=== PATIENT | female | born 1970 | race Asian ===

== ENCOUNTER 2018-07-03 12:25 | Inpatient (IN) | payer OTHER ==
[~2018-07-03] VITALS: Ht 152.4 cm; Wt 56.7 kg
--- NOTE | 2018-07-03 13:18 | Emergency Room Report ---
History of Present Illness General Chief Complaint: Lower Extremity Injury Source: Patient Present Illness HPI 48 YO Female presents to the ED C/O 05/09 in severity right hip pain s/p slip and fall getting out of the shower 3 days ago. pt. reports that she has been unable to weight bear. She has been couch ridden for 3 days unable to move secondary to pain. pt. also reports she has consciously decreased oral intake to limit need to urinate/defecate due to immobility issues. Pt. reports bruising to the left side of head, and bilateral knees. Pt. denies taking blood thinning medications. Denies pmhx. does not take medications regularly. has not taken anything for her pain. Denies numbness tingling or loss of sensation or gross motor movements of the extremity, incontinence of bowel or bladder. Denies CP, Palpitations, LOC, AMS, dizziness, Changes in Vision, weakness or a sudden severe headache. Allergies: Coded Allergies: No Known Allergies (Unverified , 07/03/18) Patient History Past Medical History: see triage record Past Surgical History: none Pertinent Family History: none Now: No Reviewed Nursing Documentation: PMH: Agreed; PSxH: Agreed Nursing Documentation-PMH Past Medical History: No Stated History Review of Systems All Other Systems: negative except mentioned in HPI Physical Exam Vital Signs Date Time Temp Pulse Resp B/P (MAP) Pulse Ox O2 Delivery O2 Flow Rate FiO2 07/03/18 12:19 98.2 93 18 135/84 98 Room Air 98.2 Sp02 EP Interpretation: reviewed, normal General Appearance: no apparent distress, alert, GCS 15, non-toxic Head: normocephalic, other - bruise to the left side of the head/forehead- non tender Eyes: bilateral eye normal inspection, bilateral eye PERRL, bilateral eye EOMI ENT: hearing grossly normal, normal voice Neck: full range of motion, no bony tend Respiratory: chest non-tender, lungs clear, normal breath sounds, speaking full sentences Cardiovascular #1: regular rate, rhythm, no edema, normal capillary refill Cardiovascular #2: 2+ dorsalis pedis (R), 2+ dorsalis pedis (L) Gastrointestinal: non tender, soft Musculoskeletal: back normal, normal range of motion, other - not ambulatory, tender - TTP to the anterior and lateral right hip. Neurologic: alert, oriented x3, responsive, motor strength/tone normal, sensory intact, speech normal, grossly normal Psychiatric: judgement/insight normal Skin: normal color, no rash, warm/dry, well hydrated, other - bruising to bilateral knees and left side of the forehead. Medical Decision Making PA Attestation Dr. nina is my supervising Physician whom patient management has been discussed with. Diagnostic Impression: Primary Impression: Hip fracture, right Qualified Codes: S72.001A - Fracture of unspecified part of neck of right femur, initial encounter for closed fracture ER Course 48 YO Female presents to the ED C/O 05/09 in severity right hip pain s/p slip and fall getting out of the shower 3 days ago. pt. reports that she has been unable to weight bear. She has been couch ridden for 3 days unable to move secondary to pain. pt. also reports she has consciously decreased oral intake to limit need to urinate/defecate due to immobility issues. Pt. reports bruising to the bilateral knees. Pt. denies taking blood thinning medications. Denies pmhx. does not take medications regularly. has not taken anything for her pain. Denies numbness tingling or loss of sensation or gross motor movements of the extremity, incontinence of bowel or bladder. Denies CP, Palpitations, LOC, AMS, dizziness, Changes in Vision, weakness or a sudden severe headache. Ddx considered but are not limited to Fracture, dislocation, contusion, Sprain/ Strain/Spasm. Vital signs: are WNL, pt. is afebrile H&PE are most consistent with musculoskeletal injury will perform imaging to r/ o fractures/dislocations. -- noted to have bruising to the left side of head- no ttp, pt. was not aware of this. she only knew about bruising to anterior knees. no obvious leg length discrepancy ORDERS: - CT Right hip - positive for acute comminuted intracapsular fracture of the right femoral neck- Per official radiology report- Please see report for specific details. CBC: mild anemia otherwise unremarkable CMP: elevated BUN, otherwise unremarkable -ABO: A-POSITIVE -UA: NO evidence of Urinary infection, no inflammatory marker elevation or nitrites ED INTERVENTIONS: - 1 liter NS - Pt. declines pain medication at this time. -Pt. placed NPO DISPOSITION: at this time pt. will be admitted to Dr. Mason for Right Femoral neck fx. Dr. Cuevas agreed to admit the pt. and to continue pt. care management. Labs Test 07/03/18 14:35 07/03/18 19:47 White Blood Count 6.7 K/UL (4.8-10.8) Red Blood Count 3.95 M/UL (4.20-5.40) Hemoglobin 14.0 G/DL (12.0-16.0) Hematocrit 41.3 % (37.0-47.0) Mean Corpuscular Volume 105 FL (80-99) Mean Corpuscular Hemoglobin 35.5 PG (27.0-31.0) Mean Corpuscular Hemoglobin Concent 33.9 G/DL (32.0-36.0) Red Cell Distribution Width 10.0 % (11.6-14.8) Platelet Count 156 K/UL (150-450) Mean Platelet Volume 9.9 FL (6.5-10.1) Neutrophils (%) (Auto) 78.4 % (45.0-75.0) Lymphocytes (%) (Auto) 12.1 % (20.0-45.0) Monocytes (%) (Auto) 8.4 % (1.0-10.0) Eosinophils (%) (Auto) 0.7 % (0.0-3.0) Basophils (%) (Auto) 0.5 % (0.0-2.0) Sodium Level 136 MMOL/L (136-145) Potassium Level 4.2 MMOL/L (3.5-5.1) Chloride Level 101 MMOL/L (98-107) Carbon Dioxide Level 23 MMOL/L (21-32) Anion Gap 12 mmol/L (5-15) Blood Urea Nitrogen 22 mg/dL (7-18) Creatinine 0.6 MG/DL (0.55-1.30) Estimat Glomerular Filtration Rate > 60 mL/min (>60) Glucose Level 89 MG/DL (74-106) Calcium Level 8.6 MG/DL (8.5-10.1) Total Bilirubin 0.9 MG/DL (0.2-1.0) Aspartate Amino Transf (AST/SGOT) 19 U/L (15-37) Alanine Aminotransferase (ALT/SGPT) 22 U/L (12-78) Alkaline Phosphatase 87 U/L (46-116) Total Protein 6.6 G/DL (6.4-8.2) Albumin 2.8 G/DL (3.4-5.0) Globulin 3.8 g/dL Albumin/Globulin Ratio 0.7 (1.0-2.7) Urine Color Yellow Urine Appearance Clear Urine pH 6 (4.5-8.0) Urine Specific [place] 1.020 (1.005-1.035) Urine Protein 1+ (NEGATIVE) Urine Glucose (UA) Negative (NEGATIVE) Urine Ketones 4+ (NEGATIVE) Urine Blood Negative (NEGATIVE) Urine Nitrite Negative (NEGATIVE) Urine Bilirubin Negative (NEGATIVE) Urine Urobilinogen 1 MG/DL (0.0-1.0) Urine Leukocyte Esterase 1+ (NEGATIVE) Urine RBC 0-2 /HPF (0 - 2) Urine WBC 0-2 /HPF (0 - 2) Urine Squamous Epithelial Cells Few /LPF (NONE/OCC) Urine Bacteria Few /HPF (NONE) EKG Diagnostic Results EP Interpretation: Dr. Anton Rate: normal - 68 BPM Rhythm: NSR ST Segments: no acute changes ASA given to the pt in ED: No PA Scribe Text This Interpretation was scribed by ATUL Poon. Chest X-Ray Diagnostic Results Chest X-Ray Diagnostic Results : Chest X-Ray Ordered: Yes # of Views/Limited/Complete: 1 View Indication: Chest Pain EP Interpretation: Yes PA Xray: Interpretation reviewed, by supervising MD, and agrees with findings. Interpretation: no consolidation, no effusion, no pneumothorax, no acute cardiopulmonary disease Impression: No acute disease Electronically Signed by: Ledy Poon PA-C CT/MRI/US Diagnostic Results CT/MRI/US Diagnostic Results : Imaging Test Ordered: CT No Contrast R HIP Impression Positive for acute intracapsular fracture of the right femoral neck-Per official radiology report- Please see report for specific details. Last Vital Signs Date Time Temp Pulse Resp B/P (MAP) Pulse Ox O2 Delivery O2 Flow Rate FiO2 07/03/18 12:19 98.2 93 18 135/84 98 Room Air 98.2 Disposition: ADMITTED INPATIENT Condition: Ledy Hughes Jul 03, 2018 13:18
[2018-07-03 14:00] VITALS: BP 130/81
--- NOTE | 2018-07-03 14:18 | Diagnostic Imaging Report ---
Indication: Hip pain Technique: continuous helical imaging in the transaxial plane was performed from the iliac crests to the pubic symphysis with attention to the right hip. Coronal 2-D reformatted images were also generated. Study obtained in a Siemens Sensation [address] total DLP: 305.29 mGycm CTD/vol: 10.1 mGy Comparison: None Findings: There is no evidence of an acute fracture or significant malalignment identified on this examination. There is acute subcapital fracture of the right femoral neck with the comminution and the displacement. Slight impaction of the fracture noted as well. Soft tissue swelling is present. No other fractures are identified. Vacuum phenomena and mild endplate osteophyte formation at L5-S1 demonstrated. IMPRESSION: Acute comminuted intracapsular fracture of the right femoral neck. The CT scanner at [facility] is accredited by the [employer] and the scans are performed using dose optimization techniques as appropriate to a performed exam including Automatic Exposure control.
[2018-07-03 14:56] LABS: BASOPHILS % (AUTO) 0.5 % (0.0-2.0); EOSINOPHILS % (AUTO) 0.7 % (0.0-3.0); HEMATOCRIT 41.3 % (37.0-47.0); LYMPHOCYTES % (AUTO) 12.1 % (20.0-45.0); MEAN CORPUSCULAR VOLUME 105 FL (80-99); MONOCYTES % (AUTO) 8.4 % (1.0-10.0); NEUTROPHILS % (AUTO) 78.4 % (45.0-75.0); PLATELET COUNT 156 K/UL (150-450); RED BLOOD COUNT 3.95 M/UL (4.20-5.40); WHITE BLOOD COUNT 6.7 K/UL (4.8-10.8)
[2018-07-03 15:00] LABS: ANION GAP 12 mmol/L (5-15); BLOOD UREA NITROGEN 22 mg/dL (7-18); CALCIUM 8.6 MG/DL (8.5-10.1); CARBON DIOXIDE 23 MMOL/L (21-32); CHLORIDE 101 MMOL/L (98-107); CREATININE 0.6 MG/DL (0.55-1.30); POTASSIUM 4.2 MMOL/L (3.5-5.1); SODIUM 136 MMOL/L (136-145)
[2018-07-03 15:04] LABS: ALANINE AMINOTRANSFERASE 22 U/L (12-78); ALBUMIN 2.8 G/DL (3.4-5.0); ALBUMIN/GLOBULIN RATIO 0.7 (1.0-2.7); ALKALINE PHOSPHATASE 87 U/L (46-116); ASPARTATE AMINO TRANSFERASE 19 U/L (15-37); BILIRUBIN,TOTAL 0.9 MG/DL (0.2-1.0)
[2018-07-03 16:00] VITALS: BP 142/82
--- NOTE | 2018-07-03 16:38 | Diagnostic Imaging Report ---
Indication: Dyspnea Comparison: None A single view chest radiograph was obtained. Findings: Cardiomediastinal appearance is within normal limits for age. There is soft tissue attenuation over the central part of the lung may be from breast tissue. The lungs are clear. Pulmonary vascularity is appropriate. The diaphragmatic contour is smooth and costophrenic angles are sharp. No pleural effusions are identified. The bones are unremarkable. Impression: No acute findings
[2018-07-03 18:00] VITALS: BP 138/79
[2018-07-03 19:58] LABS: APPEARANCE,URINE CLEAR; BILIRUBIN, URINE NEGATIVE (NEGATIVE); GLUCOSE, URINE (UA) NEGATIVE (NEGATIVE); KETONES,URINE 4+ (NEGATIVE); LEUKOCYTE ESTERASE ,URINE 1+ (NEGATIVE); NITRITE,URINE NEGATIVE (NEGATIVE); PH,URINE 6 (4.5-8.0); PROTEIN,URINE 1+ (NEGATIVE); UROBILINOGEN,URINE 1 MG/DL (0.0-1.0)
[2018-07-03 20:02] LABS: COLOR,URINE YELLOW
[2018-07-03 20:40] VITALS: BP 115/75
[2018-07-03 21:00] VITALS: BP 135/89
[2018-07-04] VITALS (12 sets, daily range): BP systolic 114–187; BP diastolic 73–100
[2018-07-04] MEDS ORDERED: Morphine Sulfate 2mg/ml Inj IVP PRN (00:45)
[2018-07-04] MEDS: D5NS 1,000 ML IV SCH ×3 (01:00→17:37)
--- NOTE | 2018-07-04 06:00 | History and Physical Report ---
DATE OF ADMISSION: 07/03/2018 REASON FOR ADMISSION: Acute hip fracture on the right. HISTORY OF PRESENT ILLNESS: This is a 48-year-old female with no significant prior medical history. She slipped in the shower, fell on her right side, and sustained pain. She states she is unaware of any other contusions or trauma. She was unable to walk or weight bear thereafter and has been unbent for several days. She also was reported to have a bruise on her left side of the head and knee, but does not recall any head trauma. She came to the emergency room, where x-rays confirmed a right hip fracture. PAST MEDICAL HISTORY: Unremarkable. PAST SURGICAL HISTORY: Tonsillectomy. MEDICATIONS: None. ALLERGIES: None. FAMILY HISTORY: Noncontributory. REVIEW OF SYSTEMS: She has never had a colonoscopy or mammogram. She has had a Pap smear done last year. She denies history of diabetes, thyroid disorder, asthma, hypertension, rheumatic heart disease, or irregular heart beat. PHYSICAL EXAMINATION: VITAL SIGNS: Blood pressure 135/84, pulse 93, respirations 18, afebrile, and room air oxygen saturation 98%. GENERAL: Well-appearing, in no distress. HEENT: Conjunctivae are pink. Oropharynx clear. NECK: Supple. Jugular venous pressure normal. LUNGS: Clear. CARDIAC: Regular rhythm and rate. Normal S1 and S2 with no murmur, rub, or gallop. ABDOMEN: Soft and nontender. No guarding or rebound. EXTREMITIES: The right hip is internally rotated. There is some bruising over both knees, right greater than left. Distal pulses 2+. No open skin lesions. There is a small hematoma over the left zoroastrian region. NEUROLOGIC: Nonfocal. IMPRESSION: 1. Mechanical fall with right hip fracture. 2. Possible osteoporosis. 3. Mild prerenal azotemia due to hypovolemia. PLAN: 1. Bed rest. 2. DVT prophylaxis. 3. Pain control. 4. Intravenous fluid hydration. 5. Orthopedic consultation. Anticipate surgical intervention with general anesthesia. The patient's perioperative cardiovascular risk is not anticipated to be increased. Ranjan Cuevas M.D. DR: ROMELIA JOB#: [id number] CC:
--- NOTE | 2018-07-04 08:16 | Consultation ---
Consult Note Consult Note mechanical fall and Rt hip femoral neck fracture Plan for Rt hip hemiarthroplasty today. Risks discussed with pt. Pt NPO. Clearance given by Odessa Avalos Jul 04, 2018 08:16
--- NOTE | 2018-07-04 14:15 | Consultation ---
DATE OF CONSULTATION: 07/04/2018 ORTHOPEDIC CONSULTATION CONSULTING PHYSICIAN: Rik Gatica M.D. REFERRING PHYSICIAN: Ranjan Cuevas M.D. HISTORY: The patient is a very pleasant 48-year-old female, who had a mechanical fall in her shower three days ago. She had immediate onset of hip pain on the right side, was unable to get around for the last three days. She has been bedbound and due to significant pain and immobility, she was taken to [facility] ER where she was noted to have a right femoral neck fracture. She has been admitted and orthopedic consult has been called to see her. PAST MEDICAL HISTORY: None. PAST SURGICAL HISTORY: Tonsillectomy. MEDICATIONS: None. ALLERGIES: None. SOCIAL HISTORY: She is independent with all activities. PHYSICAL EXAMINATION: GENERAL: She is a pleasant woman. She is cooperative with examination. EXTREMITIES: She has tenderness over the right hip, which is shortened and rotated. There is some bruising around the knees, although no sign of skin breakdown or infection. She is neurovascularly intact. DIAGNOSTIC DATA: CT scan of the hip is reviewed. There is a comminuted subcapital femoral neck fracture. IMPRESSION: Right hip subcapital femoral neck fracture. DISCUSSION: At this time, I discussed with the patient my findings. The patient will require surgical intervention for this in the form of hemiarthroplasty. She understands that. The nature of the surgery was discussed with her, I will try to get that done later today. Risks of surgery including nerve injury, vessel injury, risk of infection, bleeding were discussed with her. The risk of DVT and PE, possible fracture, dislocation, leg length discrepancy, and need for revision of surgery down the line were all discussed. She understands what is involved at this time. The patient is NPO. We will try to get this done later today. She has been seen and cleared from medical standpoint by Dr. Cuevas. All questions were answered. Rik Gatica M.D. Chantal Rodriguez DR: SHARIF JOB#: [id number] CC: MARYJANE
[2018-07-04] MEDS ORDERED: Bacitracin 50000 Units Vial ONE ×2 (14:35→14:38)
[2018-07-04] MEDS ORDERED: NeoSporin Gu Irrig 1ml Amp IRRIG ONE (14:35)
[2018-07-04] MEDS ORDERED: LR 1000ml ONE (15:00)
[2018-07-04] MEDS ORDERED: Sterile Water Irrig 1000ml IRRIG ONE (15:00)
[2018-07-04] MEDS ORDERED: Tranexamic Acid 500 MG in NS 55 ML IVPB SCH (15:00)
[2018-07-04] MEDS ORDERED: NS Irrig 1000ml ONE (15:00)
[2018-07-04] MEDS ORDERED: cloNIDine 1000mcg/10ml inj ONE (15:04)
[2018-07-04] MEDS ORDERED: Bupivacaine w/Epi 0.5% 30ml Vial INJ ONE (15:04)
[2018-07-04] MEDS ORDERED: Alfentanil 2ml Inj ONE (15:11)
[2018-07-04] MEDS ORDERED: Lidocaine 1% Plain 30 ml INJ ONE ×2 (15:12→16:11)
[2018-07-04] MEDS ORDERED: Sodium Chloride 10ml vial INJ ONE (15:12)
--- NOTE | 2018-07-04 15:20 | Pre-Procedure Note/Attestation ---
Pre-Procedure Note/Attestation Complete Prior to Procedure Planned Procedure: right Procedure Narrative: hip hemiarthroplasty Indications for Procedure Pre-Operative Diagnosis: Right hip fracture Attestation I attest that I discussed the nature of the procedure; its benefits; risks and complications; and alternatives (and the risks and benefits of such alternatives ), prior to the procedure, with the patient (or the patient's legal disability representative). I attest that, if there was a reasonable possibility of needing a blood transfusion, the patient (or the patient's legal disability representative) was given the [facility] standardized written summary, pursuant to the Krishna Parveen Blood Safety Act ([place] Health and Safety Code # 1645, as amended). I attest that I re-evaluated the patient just prior to the surgery and that there has been no change in the patient's H&P, except as documented below: Rik Gatica MD Jul 04, 2018 15:20
[2018-07-04] MEDS ORDERED: EPINEPHrine 1mg/1ml Amp ONE (15:25)
[2018-07-04] MEDS ORDERED: Metoclopramide 10mg/2ml Inj IVP PRN ×2 (15:30→16:00)
--- NOTE | 2018-07-04 15:30 | Brief Operative Note ---
Immediate Post Operative Note Operative Note Pre-op Diagnosis: Right hip fracture Procedure: Right hip hemiarthroplasty Post-op Diagnosis: same as pre-op Surgeon: shefali Anesthesiologist: Brendon Anesthesia: regional Specimen: yes - femoral head Complications: none Condition: stable Fluids: 100cc Estimated Blood Loss: minimal Drains: none Implant(s) used?: Yes - ty nita arthroplasty Rik Gatica MD Jul 04, 2018 15:30
[2018-07-04] MEDS ORDERED: D5NS 1000ml IV ONE (15:34)
[2018-07-04] MEDS ORDERED: NS 500ML ONE (15:35)
[2018-07-04] MEDS ORDERED: Tubing IV Secondary IV ONE (15:35)
[2018-07-04] MEDS ORDERED: LR 1000ml 1,000 ML IVLG SCH (15:47)
--- NOTE | 2018-07-04 15:53 | Anethesia Preoperative Eval ---
Anesthesia Pre-op PMH/ROS General Date of Evaluation: Jul 04, 2018 Time of Evaluation: 15:01 Anesthesiologist: Dannielle ASA Score: ASA 2 - Emergency Mallampati Score Class I : Soft palate, uvula, fauces, pillars visible Class II: Soft palate, uvula, fauces visible Class III: Soft palate, base of uvula visible Class IV: Only hard plate visible Mallampati Classification: Class I Surgeon: Gavi Diagnosis: R Hip Fx Surgical Procedure: R Hip Hemiarthroplasty Anesthesia History: none Family History: no anesthesia problems Allergies: Coded Allergies: No Known Allergies (Unverified , 07/03/18) Medications: see eMAR Patient NPO?: Yes Anesthesia Pre-op Phys. Exam Physician Exam Last Vital Signs Date Time Temp Pulse Resp B/P (MAP) Pulse Ox O2 Delivery O2 Flow Rate FiO2 07/04/18 12:00 98.4 64 18 137/83 (101) 99 98.4 07/04/18 09:00 Room Air Constitutional: NAD Neurologic: CN 2-12 intact Cardiovascular: RRR Respiratory: CTA Gastrointestinal: S/NT/ND Airway Exam Mallampati Score: Class I MO: full ROM: full Teeth: intact Anesthesia Pre-op A/P Risk Assessment & Plan Assessment: ASA 2E Plan: GA, Spinal, SED Status Change Before Surgery: No Pre-Antibiotics Dru Gram Ancef IV Given Within 1 Hr of Incision: Yes Time Given: 15:16 Junito Spicer MD Jul 04, 2018 15:53
--- NOTE | 2018-07-04 15:55 | Immediate Post-Op Evaluation ---
Immediate Post-Op Evalulation Immediate Post-Op Evalulation Procedure: R Hip Hemiarthroplasty Date of Evaluation: Jul 04, 2018 Time of Evaluation: 17:15 IV Fluids: 700 LR Blood Products: 0 Estimated Blood Loss: 25 Blood Pressure Systolic: 187 Blood Pressure Diastolic: 88 Pulse Rate: 74 Respiratory Rate: 16 O2 Sat by Pulse Oximetry: 100 Temperature (Fahrenheit): 97.9 Pain Score (1-10): 1 Nausea: No Vomiting: No Complications 0 Patient Status: awake, reacts, patent, none Hydration Status: adequate Dru Gram Ancef IV Given Within 1 Hr of Incision: Yes Time Given: 15:16 Junito Spicer MD Jul 04, 2018 15:55
--- NOTE | 2018-07-04 15:56 | 48 Hour Post Anesthesia Eval ---
Post Anesthesia Evaluation Procedure: R Hip Hemiarthroplasty Date of Evaluation: Jul 04, 2018 Time of Evaluation: 19:23 Blood Pressure Systolic: 143 0: 76 Pulse Rate: 72 Respiratory Rate: 18 Temperature (Fahrenheit): 98.4 O2 Sat by Pulse Oximetry: 100 Airway: patent Nausea: No Vomiting: No Pain Intensity: 0 Hydration Status: adequate Cardiopulmonary Status: Stable Mental Status/LOC: patient returned to baseline Follow-up Care/Observations: 0 Post-Anesthesia Complications: 0 Follow-up care needed: N/A Junito Spicer MD Jul 04, 2018 15:56
[2018-07-04] MEDS ORDERED: Midazolam 2mg/2ml Inj IVP PRN (16:00)
[2018-07-04] MEDS ORDERED: DiphenhydrAMINE 50mg/ml Inj IVP PRN (16:00)
[2018-07-04] MEDS ORDERED: fentaNYL 100 mcg/2 mL IV PRN (16:00)
[2018-07-04] MEDS ORDERED: Atropine Sulfate 0.4mg/ml inj IVP PRN (16:00)
[2018-07-04] MEDS ORDERED: Meperidine 50mg/ml Inj(FOR RIGORS ONLY) IVP PRN (16:00)
[2018-07-04] MEDS ORDERED: Hydromorphone 0.5mg/0.5ml inj IVP PRN (16:00)
[2018-07-04] MEDS ORDERED: HYDROcodone/Acetamin 7.5/325 tab ORAL PRN (16:00)
[2018-07-04] MEDS ORDERED: Norco 5mg/325mg tab ORAL PRN (16:00)
[2018-07-04] MEDS ORDERED: LORazepam Inj 2mg/ml 1ml IV PRN (16:00)
[2018-07-04] MEDS ORDERED: oxyCODONE HCL/Acetaminophen 5/325mg ORAL PRN (16:00)
[2018-07-04] MEDS ORDERED: Propofol 200mg/20ml IV ONE (16:11)
[2018-07-04] MEDS ORDERED: ePHEDrine 50mg/ml Inj ONE (16:28)
--- NOTE | 2018-07-04 19:06 | Diagnostic Imaging Report ---
EXAM: XR Pelvis, 1 view CLINICAL HISTORY: POST-OP TECHNIQUE: Frontal view of the pelvis. COMPARISON: CT performed on 07/03/18. FINDINGS: Bones/joints: A right hip prosthesis is noted. No definite plain film evidence for acute fracture or dislocation. A sclerotic focus is projected over the ischium on the right which may be related to a bone island. Soft tissues: Gas is projected in the soft tissues adjacent to the right hip. IMPRESSION: Status post right hip prosthesis.
[2018-07-04] MEDS: D5 1/2NS w/KCl 20mEq 1,000 ML IV SCH (19:11)
--- NOTE | 2018-07-04 20:00 | Progress Note ---
DATE: 07/04/2018 INTERNAL MEDICINE PROGRESS NOTE SUBJECTIVE: The patient is postop day #0. She underwent right total hip arthroplasty. No perioperative complications were noted. The patient's pain is under control presently. OBJECTIVE: VITAL SIGNS: Blood pressure 118/97, pulse 60, respiratory rate 19, afebrile. LUNGS: Clear. CARDIAC: Regular. ABDOMEN: Soft. SKIN: Wound with dressing in place. EXTREMITIES: Distal lower extremities perfused. No edema. IMPRESSION: Mechanical fall with right hip fracture, now status post total hip arthroplasty with no immediate complications. PLAN: 1. Postop care plan reviewed and updated. 2. Mobilization to follow. 3. Continue with DVT prophylaxis. Ranjan Cuevas M.D. DR: Carlos Alberto JOB#: [id number] CC:
--- NOTE | 2018-07-04 23:45 | Operative Note - Dictated ---
DATE OF OPERATION: 07/04/2018 PREOPERATIVE DIAGNOSIS: Right hip displaced subcapital femoral neck fracture POSTOPERATIVE DIAGNOSIS: Right hip displaced subcapital femoral neck fracture. OPERATION PERFORMED: Right hip hemiarthroplasty using [place] system, size 5 stem, size 46 mm bipolar component and 28 mm +0 neck and head, a high offset prosthesis was used. SURGEON: Rik Gatica M.D. HOSPITAL ADMISSIONS OFFICER: None. ANESTHESIOLOGIST: Junito Spicer M.D. ANESTHESIA: Spinal anesthesia. ESTIMATED BLOOD LOSS: Less than 100 mL. COMPLICATIONS: None. BRIEF HISTORY: The patient is a pleasant 48-year-old female, who sustained a mechanical fall in her tub and fell down. She apparently was walking around for 1 or 2 days on her hip. She was having significant pain. Finally, she came to the ER and x-rays were obtained, which showed a displaced subcapital femoral neck fracture. After full discussion of risks and benefits of the surgery and complications associated with it including infection, bleeding, neurovascular complication, possibility of need for revision surgery, possibility of need for conversion to total hip arthroplasty because of her young age, possible need for further surgery down the line and other complications that may arise, she opted for surgical treatment as described above. OPERATIVE PROCEDURE: The patient was brought to the operating table and was placed supine. All pressure points were well padded. Spinal anesthesia was induced and the patient was placed in the left lateral decubitus position with the right hip up. All pressure points were well padded and she was stabilized using pegboard. The right hip was prepped and draped in usual sterile fashion. Standard posterolateral approach to the hip was undertaken and the incision was taken through the subcutaneous tissue. The tensor fascia was identified and tensor fascia was then opened. The [place]arnley retractor was placed in. Short external rotators were identified and were released. The capsule was T'd. The fracture could be identified. There was old hematoma in that, which was resected. At this point, the neck was long and a standard neck cut was performed approximately 1 cm proximal to the lesser trochanter. At this point, the head was identified. The head was removed without any complications. It should be noted that this was a true subcapital fracture, which was actually partially into the articular surface and certainly there was dubious blood supply at best. At this point, all excess bone was removed. The hip was thoroughly irrigated using copious Simpulse irrigation. The acetabulum was inspected and appeared to be intact. There were no loose fragments in there. At this point, the care was given to the femur. The hip was internally rotated. The entry point was lateralized using a hand box folder and a canal finder was used. Subsequently, sequential broaching was performed from [address] up to size 5. Size 5 provided excellent stability with axially and rotationally. At this point, a high offset trial with a 0 neck length and a 46 mm bipolar was then assembled and the hip was reduced. Range of motion was checked. There was excellent reduction. The range of motion was excellent. The leg lengths were equal. There was excellent internal and external rotation of the hip. The hip was then placed through range of motion and the stability was checked. There was excellent stability at 0, 30, 45, and 75 degrees internal rotation with the hip in neutral adduction. There was no dislocation. Anterior stability was checked and appeared to be perfect. At this point, the hip was dislocated. Trial components were removed. The Simpulse irrigation was performed of the acetabulum and the femur and the soft tissues. Once thorough irrigation was completed, a size 5 127-degree accolade stem was then placed in around without any complication. This provided excellent stability both rotationally and axially. At this point, a 46 mm bipolar component and +0 neck head was then used and the entire assembly was applied and Kim taper was dried. The Kim taper was dried prior to applying the head. Once this was completed, the head was banged down and the whole entire construct was checked and rechecked to make sure the Kim taper was stable. Once this was completed, the entire construct was reduced and stability range of motion and leg lengths were checked and appeared to be perfect as described previously. The wounds were thoroughly irrigated using copious amount of fluid. The short external rotators were closed through drill holes into the bone into the greater trochanter using #2 FiberWire suture. The tensor fascia was closed using interrupted #1 Vicryl suture, subcutaneous tissue was closed in 2-0 Vicryl suture, and skin was closed using 3-0 Monocryl suture. Dermabond was applied and sterile dressing was applied. The patient was taken to recovery room in stable condition. All lap counts and instrument counts were correct. Rik Gatica M.D. DR: CIELO JOB#: [id number] CC: MARYJANE
[2018-07-04] MEDS: ceFAZolin 2gm/50ml Premix 50 ML IV SCH (23:55)
[2018-07-05] VITALS (7 sets, daily range): BP systolic 113–125; BP diastolic 69–82
[2018-07-05] MEDS: oxyCODONE 5mg IR tab ORAL PRN (05:19)
[2018-07-05] MEDS: D5 1/2NS w/KCl 20mEq 1,000 ML IV SCH ×2 (06:38→22:31)
[2018-07-05] MEDS: ceFAZolin 2gm/50ml Premix 50 ML IV SCH (06:38)
[2018-07-05 08:05] LABS: BASOPHILS % (AUTO) 0.7 % (0.0-2.0); EOSINOPHILS % (AUTO) 1.2 % (0.0-3.0); HEMATOCRIT 37.7 % (37.0-47.0); HEMOGLOBIN 13.2 G/DL (12.0-16.0); LYMPHOCYTES % (AUTO) 11.4 % (20.0-45.0); MEAN CORPUSCULAR VOLUME 104 FL (80-99); MONOCYTES % (AUTO) 12.3 % (1.0-10.0); NEUTROPHILS % (AUTO) 74.4 % (45.0-75.0); PLATELET COUNT 140 K/UL (150-450); RED BLOOD COUNT 3.61 M/UL (4.20-5.40); WHITE BLOOD COUNT 5.3 K/UL (4.8-10.8)
[2018-07-05] MEDS ORDERED: Enoxaparin 30mg Inj SUBQ SCH (09:00)
[2018-07-05] MEDS ORDERED: Enoxaparin 40mg Inj SUBQ SCH (09:00)
[2018-07-05] MEDS: HYDROmorphone 1mg/ml Carpuject SUBQ PRN ×2 (09:20→18:59)
[2018-07-05] MEDS: Enoxaparin 30mg Inj SUBQ SCH (09:21)
[2018-07-05 09:56] LABS: ANION GAP 7 mmol/L (5-15); BLOOD UREA NITROGEN 5 mg/dL (7-18); CALCIUM 8.7 MG/DL (8.5-10.1); CARBON DIOXIDE 28 MMOL/L (21-32); CHLORIDE 102 MMOL/L (98-107); CREATININE 0.6 MG/DL (0.55-1.30); POTASSIUM 3.8 MMOL/L (3.5-5.1); SODIUM 137 MMOL/L (136-145)
[2018-07-05] MEDS ORDERED: Tubing IV Secondary IV ONE (14:57)
[2018-07-05] MEDS: Albuterol/Ipratropium 3ml neb HHN SCH (20:18)
[2018-07-05 20:24] LABS: APPEARANCE,URINE CLEAR; BILIRUBIN, URINE NEGATIVE (NEGATIVE); COLOR,URINE AMBER; GLUCOSE, URINE (UA) NEGATIVE (NEGATIVE); KETONES,URINE NEGATIVE (NEGATIVE); LEUKOCYTE ESTERASE ,URINE NEGATIVE (NEGATIVE); NITRITE,URINE NEGATIVE (NEGATIVE); PH,URINE 8 (4.5-8.0); PROTEIN,URINE NEGATIVE (NEGATIVE); UROBILINOGEN,URINE 1 MG/DL (0.0-1.0)
[2018-07-06] VITALS: BP 127/84
[2018-07-06] MEDS: Albuterol/Ipratropium 3ml neb HHN SCH ×4 (01:34→19:07)
--- NOTE | 2018-07-06 02:15 | Progress Note ---
DATE: 07/05/2018 INTERNAL MEDICINE PROGRESS NOTE SUBJECTIVE: The patient is postoperative day #1. She is having recurring fevers. She has no other complaints. Pain is controlled. No cough. No sputum production. No abdominal pain, nausea, vomiting, or dysuria. OBJECTIVE: VITAL SIGNS: T-max 102.4, blood pressure 113/69, heart rate 96, respiratory rate 18, oxygen saturation is adequate. LUNGS: Good breath sounds. No wheezing. Surgical site clean and dry. CARDIAC: Regular rhythm and rate. Normal S1, S2. EXTREMITIES: No edema. DIAGNOSTIC DATA: Urinalysis revealed 5 to 10 red cells, 0 to 2 white cells, and few bacteria. Leukocyte esterase is negative. IMPRESSION: 1. Postoperative fevers may be due to atelectasis. 2. No signs of acute infection. PLAN: 1. Pulmonary hygiene. 2. Skin care. 3. Pain control. 4. Review chest radiograph. 5. Follow up DVT. 6. Consider empiric antibiotics for recurring fever spike. Ranjan Cuevas M.D. DR: DEBBI JOB#: [id number] CC:
[2018-07-06 04:00] VITALS: BP 112/78
[2018-07-06 07:25] LABS: BASOPHILS % (AUTO) 0.9 % (0.0-2.0); EOSINOPHILS % (AUTO) 1.2 % (0.0-3.0); HEMATOCRIT 36.1 % (37.0-47.0); HEMOGLOBIN 12.7 G/DL (12.0-16.0); LYMPHOCYTES % (AUTO) 16.1 % (20.0-45.0); MEAN CORPUSCULAR VOLUME 104 FL (80-99); MONOCYTES % (AUTO) 10.4 % (1.0-10.0); NEUTROPHILS % (AUTO) 71.5 % (45.0-75.0); PLATELET COUNT 128 K/UL (150-450); RED BLOOD COUNT 3.46 M/UL (4.20-5.40); RED CELL DISTRIBUTION WIDTH 9.9 % (11.6-14.8); WHITE BLOOD COUNT 5.6 K/UL (4.8-10.8)
[2018-07-06 08:00] VITALS: BP 110/69
[2018-07-06 08:08] LABS: ALANINE AMINOTRANSFERASE 24 U/L (12-78); ALBUMIN 2.3 G/DL (3.4-5.0); ALBUMIN/GLOBULIN RATIO 0.6 (1.0-2.7); ALKALINE PHOSPHATASE 82 U/L (46-116); ANION GAP 9 mmol/L (5-15); ASPARTATE AMINO TRANSFERASE 34 U/L (15-37); BILIRUBIN,TOTAL 0.6 MG/DL (0.2-1.0); BLOOD UREA NITROGEN 5 mg/dL (7-18); CALCIUM 8.9 MG/DL (8.5-10.1); CARBON DIOXIDE 26 MMOL/L (21-32); CHLORIDE 102 MMOL/L (98-107); CREATININE 0.5 MG/DL (0.55-1.30); POTASSIUM 3.6 MMOL/L (3.5-5.1); SODIUM 137 MMOL/L (136-145)
--- NOTE | 2018-07-06 08:16 | Orthopedic Progress Note ---
Orthopedic - Progress Note Subjective Symptoms: c/o post-op hip pain Objective Last 24 Hour Vital Signs Date Time Temp Pulse Resp B/P (MAP) Pulse Ox O2 Delivery O2 Flow Rate FiO2 07/06/18 07:20 76 19 96 Room Air 21 07/06/18 04:00 98.5 72 19 112/78 (89) 98 98.5 07/06/18 01:36 84 18 97 Room Air 21 07/06/18 01:25 82 18 94 Room Air 21 07/06/18 01:00 98.5 07/06/18 00:21 100.6 07/06/18 00:00 100.4 94 18 127/84 (98) 98 100.4 07/05/18 21:00 Room Air 07/05/18 20:24 88 18 98 Room Air 21 07/05/18 20:00 97.7 78 18 117/70 (86) 100 97.7 07/05/18 19:50 86 18 95 Room Air 21 07/05/18 19:50 86 18 Room Air 21 07/05/18 16:58 102.5 07/05/18 16:45 102.4 96 18 113/69 (84) 98 102.4 07/05/18 12:45 99.5 99.5 07/05/18 12:00 100.1 96 18 115/73 (87) 98 100.1 07/05/18 09:50 98.0 07/05/18 09:22 101.4 07/05/18 09:15 98.9 98.9 07/05/18 09:00 Room Air Intake and Output 07/05/18 07/06/18 19:00 07:00 Intake Total 675 ml 240 ml Output Total 1500 ml Balance -825 ml 240 ml Intake Oral 240 ml IV Total 675 ml Output Urine Total 1500 ml # Voids 3 Laboratory Tests Test 07/05/18 19:15 07/06/18 05:40 Urine Color [place] Urine Appearance Clear Urine pH 8 (4.5-8.0) Urine Specific [place] 1.010 (1.005-1.035) Urine Protein Negative (NEGATIVE) Urine Glucose (UA) Negative (NEGATIVE) Urine Ketones Negative (NEGATIVE) Urine Blood 2+ (NEGATIVE) H Urine Nitrite Negative (NEGATIVE) Urine Bilirubin Negative (NEGATIVE) Urine Ictotest Negative (NEGATIVE) Urine Urobilinogen 1 MG/DL (0.0-1.0) H Urine Leukocyte Esterase Negative (NEGATIVE) Urine RBC 5-10 /HPF (0 - 2) H Urine WBC 0-2 /HPF (0 - 2) Urine Squamous Epithelial Cells Moderate /LPF (NONE/OCC) H Urine Bacteria Few /HPF (NONE) White Blood Count 5.6 K/UL (4.8-10.8) Red Blood Count 3.46 M/UL (4.20-5.40) L Hemoglobin 12.7 G/DL (12.0-16.0) Hematocrit 36.1 % (37.0-47.0) L Mean Corpuscular Volume 104 FL (80-99) H Mean Corpuscular Hemoglobin 36.7 PG (27.0-31.0) H Mean Corpuscular Hemoglobin Concent 35.2 G/DL (32.0-36.0) Red Cell Distribution Width 9.9 % (11.6-14.8) L Platelet Count 128 K/UL (150-450) L Mean Platelet Volume 9.7 FL (6.5-10.1) Neutrophils (%) (Auto) 71.5 % (45.0-75.0) Lymphocytes (%) (Auto) 16.1 % (20.0-45.0) L Monocytes (%) (Auto) 10.4 % (1.0-10.0) H Eosinophils (%) (Auto) 1.2 % (0.0-3.0) Basophils (%) (Auto) 0.9 % (0.0-2.0) Sodium Level 137 MMOL/L (136-145) Potassium Level 3.6 MMOL/L (3.5-5.1) Chloride Level 102 MMOL/L (98-107) Carbon Dioxide Level 26 MMOL/L (21-32) Anion Gap 9 mmol/L (5-15) Blood Urea Nitrogen 5 mg/dL (7-18) L Creatinine 0.5 MG/DL (0.55-1.30) L Estimat Glomerular Filtration Rate > 60 mL/min (>60) Glucose Level 106 MG/DL (74-106) Calcium Level 8.9 MG/DL (8.5-10.1) Total Bilirubin 0.6 MG/DL (0.2-1.0) Aspartate Amino Transf (AST/SGOT) 34 U/L (15-37) Alanine Aminotransferase (ALT/SGPT) 24 U/L (12-78) Alkaline Phosphatase 82 U/L (46-116) Total Protein 6.1 G/DL (6.4-8.2) L Albumin 2.3 G/DL (3.4-5.0) L Globulin 3.8 g/dL Albumin/Globulin Ratio 0.6 (1.0-2.7) L Wound: clean, dry Drains: none Neuro Status: normal Vascular Status: normal Assessment Procedure Performed Right hip hemiarthroplasty Plan Plan: PT, pain management, discharge to home Additional Comments Low grade temperature in the past 24hours. Most likely atelectasis related, but will continue to monitor. will need home health after home discharge Rik Gatica MD Jul 06, 2018 08:16
[2018-07-06] MEDS: Enoxaparin 30mg Inj SUBQ SCH (09:00)
[2018-07-06] MEDS: D5 1/2NS w/KCl 20mEq 1,000 ML IV SCH (10:00)
[2018-07-06] MEDS: Aspirin EC 81mg tab ORAL SCH (10:13)
[2018-07-06] MEDS: HYDROmorphone 1mg/ml Carpuject SUBQ PRN ×2 (10:15→21:00)
[2018-07-06 12:00] VITALS: BP 110/76
[2018-07-06 16:00] VITALS: BP 114/75
[2018-07-06 20:00] VITALS: BP 111/66
--- NOTE | 2018-07-06 20:00 | Consultation ---
DATE OF CONSULTATION: 07/06/2018 INFECTIOUS DISEASE CONSULTATION CONSULTING PHYSICIAN: Kiran Hardin M.D. PRIMARY ATTENDING PHYSICIAN: Ranjan Cuevas M.D. This consult is for coverage of Dr. Gilliam. REASON FOR CONSULT: Fever. HISTORY OF PRESENT ILLNESS: This is a 48-year-old female, admitted on July 03, 2018. Three days before admission, the patient slipped in bathroom, had a fall and who has developed right hip pain. After that, she could not walk. In hospital, it was discovered that the patient have right hip fractures. The patient had a surgery on July 04 that included right hip hemiarthroplasty. The patient has fever, all that started on July 05, with peak of 102.4. Today, the temperature is coming down and the highest temperature was 100.6. PAST MEDICAL HISTORY: Significant . MEDICATIONS: Aspirin, albuterol/ipratropium inhaler, Lovenox, hydromorphone, oxycodone, metoclopramide, Tylenol, morphine, and diphenhydramine. SOCIAL HISTORY: Single, has no child. Smoker of six cigars a day. No drugs. No alcohol abuse. Works in a [employer] of the [employer]. REVIEW OF SYSTEMS: The patient had no coughing, no shortness of breath. No nausea. No vomiting. No problem passing urine. The pain in the site of surgery with movement. PHYSICAL EXAMINATION: VITAL SIGNS: Temperature 98.9, pulse 97, and blood pressure 110/69. GENERAL APPEARANCE: No acute distress. Seems to be thin. Sitting on a chair. HEAD AND NECK: Boon conjunctivae. HEART: S1 and S2 regular. LUNGS: Clear bilaterally. ABDOMEN: Soft and nontender. EXTREMITIES: Has no edema. She has dressing in the right hip area at the site of fracture. LABORATORY AND DIAGNOSTIC DATA: WBC 5.6, hemoglobin 12.7, hematocrit 36.1, and platelets is 128. Sodium 137, potassium 3.6, chloride 102, bicarbonate 26, BUN 5, creatinine 0.5, and glucose 106. UA shows 5 to 10 rbc, few bacteria, blood 2+. Chest x-ray was negative. IMPRESSION: Fever, likely post procedural fever. The patient has right femoral subcapital fracture, is status post hip hemiarthroplasty, is a smoker. RECOMMENDATIONS: Observe off antibiotics. We will followup the patient. If the patient remains afebrile, she can be discharged to home. At the end of my exam, I thank Dr. Cuevas, for involving me in the care of this patient. Kiran Hardin M.D. DR: MARY JOB#: [id number] CC: MARYJANE
[2018-07-07] VITALS: BP 128/77
--- NOTE | 2018-07-07 | Progress Note ---
DATE: 07/06/2018 INTERNAL MEDICINE PROGRESS NOTE SUBJECTIVE: The patient has defervesced. Last temperature of 100.4 at midnight. This morning, T-max 99. She has no cough. No abdominal pain. No dysuria. No diarrhea. No wound drainage or pain. OBJECTIVE: VITAL SIGNS: Blood pressure 112/78, pulse 72, respiratory rate 19. LUNGS: Bilateral breath sounds. HEART: Regular rhythm and rate. Normal S1 and S2. ABDOMEN: Soft. Surgical site dry. EXTREMITIES: No edema. No cords. No calf tenderness. LABORATORY AND DIAGNOSTIC DATA: White count is 5.6 and hemoglobin 12.7. Potassium 3.6, BUN 5, creatinine 0.5. Albumin 2.3. IMPRESSION: 1. Status post mechanical fall with hip fracture and right total hip arthroplasty. 2. Postoperative fevers may have been due to atelectasis and has resolved off antimicrobials. There were no other findings to suggest any source of infection including clear urinalysis. 3. Severe protein-calorie malnutrition noted. PLAN: 1. Mobilize protein supplement. 2. DVT prophylaxis. 3. Respiratory hygiene. 4. Hold off antibiotics for now. Ranjan Cuevas M.D. DR: Anthony JOB#: [id number] CC:
[2018-07-07] MEDS: Albuterol/Ipratropium 3ml neb HHN SCH ×4 (01:21→20:00)
[2018-07-07 04:00] VITALS: BP 106/66
[2018-07-07 07:30] LABS: BASOPHILS % (AUTO) 0.9 % (0.0-2.0); EOSINOPHILS % (AUTO) 3.6 % (0.0-3.0); HEMATOCRIT 33.7 % (37.0-47.0); HEMOGLOBIN 11.9 G/DL (12.0-16.0); LYMPHOCYTES % (AUTO) 25.8 % (20.0-45.0); MEAN CORPUSCULAR VOLUME 105 FL (80-99); MONOCYTES % (AUTO) 13.8 % (1.0-10.0); PLATELET COUNT 148 K/UL (150-450); RED BLOOD COUNT 3.22 M/UL (4.20-5.40); RED CELL DISTRIBUTION WIDTH 10.1 % (11.6-14.8)
[2018-07-07 08:00] VITALS: BP 108/57
[2018-07-07] MEDS: Aspirin EC 81mg tab ORAL SCH (09:00)
[2018-07-07] MEDS: Enoxaparin 30mg Inj SUBQ SCH (09:44)
--- NOTE | 2018-07-07 11:05 | Diagnostic Imaging Report ---
Indication: Abnormal breath sounds Comparison: 07/03/2018 A single view chest radiograph was obtained. Findings: No change appreciated. Lungs remain clear. Breast attenuation is considerable. Heart size is stable and within normal limits. IMPRESSION: No acute findings. No interval change
--- NOTE | 2018-07-07 11:43 | Infectious Diseases Prog Note ---
Assessment/Plan Assessment/Plan antibiotics : none A 1. fever improving 2. Right hip displaced subcapital femoral neck fracture s/p hemiarthroplasty 3. s/p fall P 1. continue off antibiotics 2. urine culture Subjective Constitutional: Denies: fever, chills Respiratory: Denies: shortness of breath, dry cough Gastrointestinal/Abdominal: Denies: nausea, vomiting, diarrhea Musculoskeletal: Reports: pain - mild Allergies: Coded Allergies: No Known Allergies (Unverified , 07/03/18) Objective Vital Signs Last 24 Hour Vital Signs Date Time Temp Pulse Resp B/P (MAP) Pulse Ox O2 Delivery O2 Flow Rate FiO2 07/07/18 09:00 Room Air 07/07/18 08:00 97.7 80 21 108/57 (74) 98 97.7 07/07/18 07:10 73 18 99 Room Air 21 07/07/18 07:03 71 18 96 Room Air 21 07/07/18 04:00 97.8 74 18 106/66 (79) 96 97.8 07/07/18 01:31 89 20 98 Room Air 21 07/07/18 01:21 63 18 94 Room Air 21 07/07/18 00:00 97.7 74 18 128/77 (94) 96 97.7 07/06/18 23:00 97.7 07/06/18 21:03 100.7 07/06/18 21:00 Room Air 07/06/18 20:00 100.6 100 18 111/66 (81) 95 100.6 07/06/18 19:17 99 20 98 Room Air 21 07/06/18 19:07 81 18 95 Room Air 21 07/06/18 16:00 99.6 97 18 114/75 (88) 97 99.6 07/06/18 12:40 79 20 98 Room Air 21 07/06/18 12:30 75 18 95 Room Air 21 07/06/18 12:00 99.3 96 19 110/76 (87) 98 99.3 Height (Feet): 5 Height (Inches): 0.00 Weight (Pounds): 5 Respiratory/Chest: lungs clear Cardiovascular: normal rate, regular rhythm, no gallop/murmur Abdomen: soft, non tender Extremities: no edema Microbiology Date/Time Source Procedure Growth Status 07/05/18 19:30 Blood Blood Culture - Preliminary NO GROWTH AFTER 24 HOURS Resulted 07/05/18 19:15 Blood Blood Culture - Preliminary NO GROWTH AFTER 24 HOURS Resulted Laboratory Tests Test 07/07/18 05:45 White Blood Count 5.0 K/UL (4.8-10.8) Red Blood Count 3.22 M/UL (4.20-5.40) L Hemoglobin 11.9 G/DL (12.0-16.0) L Hematocrit 33.7 % (37.0-47.0) L Mean Corpuscular Volume 105 FL (80-99) H Mean Corpuscular Hemoglobin 37.1 PG (27.0-31.0) H Mean Corpuscular Hemoglobin Concent 35.4 G/DL (32.0-36.0) Red Cell Distribution Width 10.1 % (11.6-14.8) L Platelet Count 148 K/UL (150-450) L Mean Platelet Volume 10.2 FL (6.5-10.1) H Neutrophils (%) (Auto) 56.0 % (45.0-75.0) Lymphocytes (%) (Auto) 25.8 % (20.0-45.0) Monocytes (%) (Auto) 13.8 % (1.0-10.0) H Eosinophils (%) (Auto) 3.6 % (0.0-3.0) H Basophils (%) (Auto) 0.9 % (0.0-2.0) Current Medications Medications (Trade) Dose Ordered Sig/Nury Route PRN Reason Start Time Stop Time Status Last Admin Dose Admin Acetaminophen (Tylenol) 650 mg Q4H PRN ORAL temp>100 07/04/18 15:30 08/03/18 15:29 07/06/18 21:03 Albuterol/ Ipratropium (Albuterol/ Ipratropium) 3 ml Q6HRT HHN 07/05/18 19:00 07/10/18 18:59 07/07/18 07:03 Aspirin (Ecotrin) 81 mg DAILY ORAL 07/06/18 09:00 08/05/18 08:59 07/06/18 10:13 Diphenhydramine HCl (Benadryl) 25 mg Q6H PRN ORAL Itching 07/04/18 00:45 08/03/18 00:44 Enoxaparin Sodium (Lovenox) 30 mg DAILY SUBQ 07/05/18 09:00 08/04/18 08:59 07/07/18 09:44 Hydromorphone HCl (Dilaudid) 1 mg Q4H PRN SUBQ Mild Pain (Pain Scale 1-3) 07/04/18 15:30 07/11/18 15:29 07/06/18 21:00 Metoclopramide HCl (Reglan) 10 mg Q6H PRN IVP Nausea & Vomiting 07/04/18 15:30 08/03/18 15:29 Morphine Sulfate (Morphine Sulfate) 2 mg Q4H PRN IVP For Pain 07/04/18 00:45 07/11/18 00:44 Ondansetron HCl (Zofran) 4 mg Q4H PRN IVP Nausea & Vomiting 07/04/18 15:30 08/03/18 15:29 Oxycodone HCl (Roxicodone) 5 mg Q4H PRN ORAL Breakthrough Pain 07/04/18 15:30 07/11/18 15:29 07/05/18 05:19 DENISHA RUCKER Jul 07, 2018 11:43
[2018-07-07 12:00] VITALS: BP 106/67
--- NOTE | 2018-07-07 14:54 | Cardiology Report ---
APPROVED REPORT EKG Measurement Heart [id number] Normal sinus rhythm Possible Left atrial enlargement Nonspecific ST abnormality Abnormal ECG
[2018-07-07 16:00] VITALS: BP 110/64
[2018-07-07 20:45] VITALS: BP 116/68
[2018-07-07] MEDS: oxyCODONE 5mg IR tab ORAL PRN (20:47)
[2018-07-08] VITALS: BP 111/64
[2018-07-08] MEDS ORDERED: Milk of Magnesia 30ml Ud ORAL PRN
[2018-07-08] MEDS ORDERED: Docusate 100mg cap ORAL ONE
[2018-07-08 00:17] LABS: APPEARANCE,URINE CLEAR; BILIRUBIN, URINE NEGATIVE (NEGATIVE); COLOR,URINE PALE YELLOW; GLUCOSE, URINE (UA) NEGATIVE (NEGATIVE); KETONES,URINE NEGATIVE (NEGATIVE); LEUKOCYTE ESTERASE ,URINE NEGATIVE (NEGATIVE); NITRITE,URINE NEGATIVE (NEGATIVE); PH,URINE 6.5 (4.5-8.0); PROTEIN,URINE NEGATIVE (NEGATIVE); UROBILINOGEN,URINE NORMAL MG/DL (0.0-1.0)
[2018-07-08] MEDS: Albuterol/Ipratropium 3ml neb HHN SCH ×4 (01:26→19:52)
[2018-07-08 04:00] VITALS: BP 106/66
--- NOTE | 2018-07-08 05:00 | Progress Note ---
DATE: 07/07/2018 CARDIOLOGY AND INTERNAL MEDICINE PROGRESS NOTE SUBJECTIVE: The patient has no chest pain, shortness of breath, dysuria, abdominal pain, or diarrhea. She is constipated. She has pain when getting in and out of bed. OBJECTIVE: VITAL SIGNS: Blood pressure 116/68, pulse 99, respiratory rate 20, and temperature 100.5. LUNGS: Diminished breath sounds. HEART: Regular rhythm and rate. Normal S1 and S2. No murmur. ABDOMEN: Soft. Wound site clean and dry. EXTREMITIES: No edema. LABORATORY DATA: White count 5 and hemoglobin 11.9. IMPRESSION: 1. Status post total hip arthroplasty on the right following mechanical fall and fracture. 2. Postoperative fevers with no source of infection. 3. Protein calorie malnutrition. PLAN: 1. Respiratory hygiene. 2. Repeat chest radiograph and urinalysis. 3. ____ antimicrobials. 4. Pain control. 5. Mobilization. aRnjan Cuevas M.D. DR: DEL JOB#: [id number] CC:
[2018-07-08 07:26] LABS: BASOPHILS % (AUTO) 1.2 % (0.0-2.0); EOSINOPHILS % (AUTO) 5.2 % (0.0-3.0); HEMATOCRIT 30.8 % (37.0-47.0); HEMOGLOBIN 10.7 G/DL (12.0-16.0); LYMPHOCYTES % (AUTO) 24.3 % (20.0-45.0); MEAN CORPUSCULAR VOLUME 105 FL (80-99); MONOCYTES % (AUTO) 15.9 % (1.0-10.0); NEUTROPHILS % (AUTO) 53.4 % (45.0-75.0); PLATELET COUNT 212 K/UL (150-450); RED BLOOD COUNT 2.94 M/UL (4.20-5.40); RED CELL DISTRIBUTION WIDTH 9.8 % (11.6-14.8); WHITE BLOOD COUNT 3.6 K/UL (4.8-10.8)
[2018-07-08 08:00] VITALS: BP 118/65
[2018-07-08] MEDS: Docusate 100mg cap ORAL SCH ×2 (08:37→17:36)
[2018-07-08] MEDS: Aspirin EC 81mg tab ORAL SCH (08:38)
[2018-07-08] MEDS: Enoxaparin 30mg Inj SUBQ SCH (08:38)
[2018-07-08 12:00] VITALS: BP 121/76
--- NOTE | 2018-07-08 12:43 | Diagnostic Imaging Report ---
Indication: Dyspnea Comparison: 07/06/2018 2 views of the chest obtained. Findings: The lungs appear hyperexpanded but unchanged. Heart size is normal. Bilateral breast implants noted with attenuation limitation of the mid lung field. Bones are slightly osteopenic IMPRESSION: No acute findings. No change
--- NOTE | 2018-07-08 14:08 | Infectious Diseases Prog Note ---
Assessment/Plan Assessment/Plan A 1. fever improving 2. Right hip displaced subcapital femoral neck fracture s/p hemiarthroplasty 3. s/p fall P 1. continue off antibiotic Subjective ROS Limited/Unobtainable: No Constitutional: Reports: fever, other - last night Respiratory: Reports: no symptoms Cardiovascular: Reports: no symptoms Gastrointestinal/Abdominal: Reports: no symptoms Genitourinary: Reports: no symptoms Allergies: Coded Allergies: No Known Allergies (Unverified , 07/03/18) Objective Vital Signs Last 24 Hour Vital Signs Date Time Temp Pulse Resp B/P (MAP) Pulse Ox O2 Delivery O2 Flow Rate FiO2 07/08/18 12:59 77 18 99 Room Air 21 07/08/18 12:51 72 18 99 Room Air 21 07/08/18 12:00 98.5 99 21 121/76 (91) 98 98.5 07/08/18 08:23 73 18 98 Room Air 21 07/08/18 08:17 74 18 97 Room Air 21 07/08/18 08:16 74 18 Room Air 21 07/08/18 08:07 Room Air 07/08/18 08:00 97.6 78 20 118/65 (82) 96 97.6 07/08/18 04:00 97.6 65 16 106/66 (79) 99 97.6 07/08/18 01:32 81 18 100 Room Air 21 07/08/18 01:25 76 18 98 Room Air 21 07/08/18 00:00 98.3 74 20 111/64 (80) 99 98.3 07/07/18 22:00 98.7 07/07/18 21:16 100.5 07/07/18 21:00 Room Air 07/07/18 20:45 100.5 99 20 116/68 (84) 94 100.5 07/07/18 20:07 85 18 99 Room Air 21 07/07/18 20:00 88 18 98 Room Air 21 07/07/18 16:00 98.6 77 20 110/64 (79) 100 98.6 Height (Feet): 5 Height (Inches): 0.00 Weight (Pounds): 5 General Appearance: no acute distress HEENT: mucous membranes moist Respiratory/Chest: lungs clear Cardiovascular: normal rate Abdomen: soft, non tender Extremities: no edema Neurologic/Psychiatric: alert, oriented x 3, responsive Microbiology Date/Time Source Procedure Growth Status 07/05/18 19:30 Blood Blood Culture - Preliminary NO GROWTH AFTER 48 HOURS Resulted 07/05/18 19:15 Blood Blood Culture - Preliminary NO GROWTH AFTER 48 HOURS Resulted 07/07/18 16:02 Urine,Clean Catch Urine Culture - Preliminary NO GROWTH Resulted Laboratory Tests Test 07/08/18 00:00 07/08/18 06:15 Urine Color Pale yellow Urine Appearance Clear Urine pH 6.5 (4.5-8.0) Urine Specific [place] 1.010 (1.005-1.035) Urine Protein Negative (NEGATIVE) Urine Glucose (UA) Negative (NEGATIVE) Urine Ketones Negative (NEGATIVE) Urine Blood Negative (NEGATIVE) Urine Nitrite Negative (NEGATIVE) Urine Bilirubin Negative (NEGATIVE) Urine Urobilinogen Normal MG/DL (0.0-1.0) Urine Leukocyte Esterase Negative (NEGATIVE) White Blood Count 3.6 K/UL (4.8-10.8) L Red Blood Count 2.94 M/UL (4.20-5.40) L Hemoglobin 10.7 G/DL (12.0-16.0) L Hematocrit 30.8 % (37.0-47.0) L Mean Corpuscular Volume 105 FL (80-99) H Mean Corpuscular Hemoglobin 36.5 PG (27.0-31.0) H Mean Corpuscular Hemoglobin Concent 34.9 G/DL (32.0-36.0) Red Cell Distribution Width 9.8 % (11.6-14.8) L Platelet Count 212 K/UL (150-450) Mean Platelet Volume 9.2 FL (6.5-10.1) Neutrophils (%) (Auto) 53.4 % (45.0-75.0) Lymphocytes (%) (Auto) 24.3 % (20.0-45.0) Monocytes (%) (Auto) 15.9 % (1.0-10.0) H Eosinophils (%) (Auto) 5.2 % (0.0-3.0) H Basophils (%) (Auto) 1.2 % (0.0-2.0) Current Medications Medications (Trade) Dose Ordered Sig/Nury Route PRN Reason Start Time Stop Time Status Last Admin Dose Admin Acetaminophen (Tylenol) 650 mg Q4H PRN ORAL temp>100 10/5/18 15:30 08/03/18 15:29 07/07/18 21:16 Albuterol/ Ipratropium (Albuterol/ Ipratropium) 3 ml Q6HRT HHN 07/05/18 19:00 07/10/18 18:59 07/08/18 12:51 Aspirin (Ecotrin) 81 mg DAILY ORAL 07/06/18 09:00 08/05/18 08:59 07/08/18 08:38 Diphenhydramine HCl (Benadryl) 25 mg Q6H PRN ORAL Itching 07/04/18 00:45 08/03/18 00:44 Docusate Sodium (Colace) 100 mg TWICE A DAY ORAL 07/08/18 09:00 08/07/18 08:59 07/08/18 08:37 Enoxaparin Sodium (Lovenox) 30 mg DAILY SUBQ 07/05/18 09:00 08/04/18 08:59 07/08/18 08:38 Hydromorphone HCl (Dilaudid) 1 mg Q4H PRN SUBQ Mild Pain (Pain Scale 1-3) 07/04/18 15:30 07/11/18 15:29 07/06/18 21:00 Magnesium Hydroxide (Mom) 30 ml DAILYPRN PRN ORAL Constipation 07/08/18 00:00 08/07/18 00:00 07/08/18 00:01 Metoclopramide HCl (Reglan) 10 mg Q6H PRN IVP Nausea & Vomiting 07/04/18 15:30 08/03/18 15:29 Morphine Sulfate (Morphine Sulfate) 2 mg Q4H PRN IVP For Pain 07/04/18 00:45 07/11/18 00:44 Ondansetron HCl (Zofran) 4 mg Q4H PRN IVP Nausea & Vomiting 07/04/18 15:30 08/03/18 15:29 Oxycodone HCl (Roxicodone) 5 mg Q4H PRN ORAL Breakthrough Pain 07/04/18 15:30 07/11/18 15:29 07/07/18 20:47 Kiran Hardin MD Jul 08, 2018 14:08
[2018-07-08 16:00] VITALS: BP 105/60
[2018-07-08 20:00] VITALS: BP 107/70
[2018-07-08] MEDS: oxyCODONE 5mg IR tab ORAL PRN (20:23)
[2018-07-09 00:20] VITALS: BP 114/65
--- NOTE | 2018-07-09 01:15 | Progress Note ---
DATE: 07/08/2018 INTERNAL MEDICINE PROGRESS NOTE SUBJECTIVE: The patient is still with some pain getting in and out of bed. Appetite is fair. She is weak, but improving. OBJECTIVE: VITAL SIGNS: Now afebrile. Vitals are stable. LUNGS: Clear. CARDIAC: Regular. ABDOMEN: Soft. EXTREMITIES: No edema. LABORATORY DATA: Urinalysis is negative. Chest x-ray with no acute process. IMPRESSION: 1. Postoperative fevers have resolved, postoperative recovery, adequate following. 2. Total hip arthroplasty on the right. 3. Postoperative anemia, stable. 4. Postoperative pain, better controlled. PLAN: 1. Observe off antibiotics. 2. Continue mobilization. 3. Pain control. 4. DVT prophylaxis will be arranging DME and home PT for discharge within the next 24 hours. Ranjan Cuevas M.D. DR: DEL JOB#: [id number] CC:
[2018-07-09] MEDS: Albuterol/Ipratropium 3ml neb HHN SCH ×3 (01:27→12:44)
[2018-07-09 04:28] VITALS: BP 126/73
[2018-07-09 08:00] VITALS: BP 116/69
[2018-07-09] MEDS: Docusate 100mg cap ORAL SCH (09:00)
[2018-07-09] MEDS: Aspirin EC 81mg tab ORAL SCH (09:29)
[2018-07-09] MEDS: oxyCODONE 5mg IR tab ORAL PRN (09:31)
[2018-07-09] MEDS: Enoxaparin 30mg Inj SUBQ SCH (09:33)
--- NOTE | 2018-07-09 11:11 | Infectious Diseases Prog Note ---
Assessment/Plan Assessment/Plan antibiotics : none A 1. fever improving 2. Right hip displaced subcapital femoral neck fracture s/p hemiarthroplasty 3. s/p fall P 1. continue off antibiotics Subjective Constitutional: Denies: fever, chills Respiratory: Denies: shortness of breath, dry cough Gastrointestinal/Abdominal: Denies: nausea, vomiting, diarrhea Musculoskeletal: Reports: pain - decreased Allergies: Coded Allergies: No Known Allergies (Unverified , 07/03/18) Objective Vital Signs Last 24 Hour Vital Signs Date Time Temp Pulse Resp B/P (MAP) Pulse Ox O2 Delivery O2 Flow Rate FiO2 07/09/18 09:00 Room Air 07/09/18 08:17 89 16 99 Room Air 21 07/09/18 08:07 88 16 96 Room Air 21 07/09/18 08:00 98.0 88 20 116/69 (85) 96 98.0 07/09/18 04:28 98.1 91 20 126/73 (90) 99 98.1 07/09/18 01:37 76 18 99 Room Air 21 07/09/18 01:27 76 18 99 Room Air 21 07/09/18 00:20 98.6 79 18 114/65 (81) 97 98.6 07/08/18 21:39 Room Air 07/08/18 20:00 99.3 76 19 107/70 (82) 98 99.3 07/08/18 19:59 78 18 99 Room Air 21 07/08/18 19:52 78 18 97 Room Air 21 07/08/18 16:00 98.0 80 20 105/60 (75) 96 98.0 07/08/18 13:11 74 18 99 Room Air 21 07/08/18 12:59 77 18 99 Room Air 21 07/08/18 12:51 72 18 99 Room Air 21 07/08/18 12:00 98.5 99 21 121/76 (91) 98 98.5 Height (Feet): 5 Height (Inches): 0.00 Weight (Pounds): 125 Respiratory/Chest: lungs clear Cardiovascular: normal rate, regular rhythm, no gallop/murmur Abdomen: soft, non tender Extremities: no edema, other - right hip in dressings Microbiology Date/Time Source Procedure Growth Status 07/07/18 16:02 Urine,Clean Catch Urine Culture - Preliminary NO GROWTH AFTER 24 HOURS Resulted Current Medications Medications (Trade) Dose Ordered Sig/Nury Route PRN Reason Start Time Stop Time Status Last Admin Dose Admin Acetaminophen (Tylenol) 650 mg Q4H PRN ORAL temp>100 07/04/18 15:30 08/03/18 15:29 07/07/18 21:16 Albuterol/ Ipratropium (Albuterol/ Ipratropium) 3 ml Q6HRT HHN 07/05/18 19:00 07/10/18 18:59 07/09/18 08:06 Aspirin (Ecotrin) 81 mg DAILY ORAL 07/06/18 09:00 08/05/18 08:59 07/09/18 09:29 Diphenhydramine HCl (Benadryl) 25 mg Q6H PRN ORAL Itching 07/04/18 00:45 08/03/18 00:44 Docusate Sodium (Colace) 100 mg TWICE A DAY ORAL 07/08/18 09:00 08/07/18 08:59 07/08/18 17:36 Enoxaparin Sodium (Lovenox) 30 mg DAILY SUBQ 07/05/18 09:00 08/04/18 08:59 07/09/18 09:33 Hydromorphone HCl (Dilaudid) 1 mg Q4H PRN SUBQ Mild Pain (Pain Scale 1-3) 07/04/18 15:30 07/11/18 15:29 07/06/18 21:00 Magnesium Hydroxide (Mom) 30 ml DAILYPRN PRN ORAL Constipation 07/08/18 00:00 08/07/18 00:00 07/08/18 00:01 Metoclopramide HCl (Reglan) 10 mg Q6H PRN IVP Nausea & Vomiting 07/04/18 15:30 08/03/18 15:29 Morphine Sulfate (Morphine Sulfate) 2 mg Q4H PRN IVP For Pain 07/04/18 00:45 07/11/18 00:44 Ondansetron HCl (Zofran) 4 mg Q4H PRN IVP Nausea & Vomiting 07/04/18 15:30 08/03/18 15:29 Oxycodone HCl (Roxicodone) 5 mg Q4H PRN ORAL Breakthrough Pain 07/04/18 15:30 07/11/18 15:29 07/09/18 09:31 DENISHA RUCKER Jul 09, 2018 11:11
[2018-07-09 12:00] VITALS: BP 111/74
[2018-07-09] MEDS ORDERED: Norco 5mg/325mg tab ORAL PRN (13:30)
[2018-07-09 16:00] VITALS: BP 94/71
[2018-07-09] MEDS ORDERED: MELOXICAM15 MG PO (16:50)
[2018-07-09] MEDS ORDERED: NORCO 5-325 TA1 EACH ORAL (16:51)
--- NOTE | 2018-07-10 12:40 | Discharge Summary ---
Discharge Summary Discharge Summary _ DATE OF ADMISSION: 07/03/2018 DATE OF DISCHARGE: 07/09/2018 CONSULTANTS: Dr. Kole Gatica BRIEF HOSPITAL COURSE: Patient is a 48-year-old female, with no significant medical history, slipped in the shower, fell on her right side and sustained pain. She was unable to walk and bear weight. She presented to emergency room where x-rays confirmed a right hip fracture. Orthopedic consultation was obtained. CT scan of the hip showed right subcapital femoral neck fracture. On 07/04/2018, she underwent right hip hemiarthroplasty. Postoperatively, she was given pain management. She was placed on DVT prophylaxis. She was encouraged use of incentive spirometer. She underwent PT and OT mobility. She had fever, MAXIMUM TEMPERATURE 102.4. ID consult was done. Fever possibly from atelectasis, resolved off antimicrobials. There was no findings to suggest any source of infection. Repeat chest x-ray done showed no acute findings. No interval change. Urinalysis was negative. Blood culture did not isolate any growth. Urine culture with no growth. She eventually defervesced. She was cleared for discharge home. FINAL DIAGNOSES: Right hip fracture status post mechanical fall Status post right hip hemiarthroplasty Postoperative fever, resolved Postoperative anemia, stable Postoperative pain Severe protein calorie malnutrition DISPOSITION: A shunt was discharged home with home health. DISCHARGE MEDICATIONS: Refer to Discharge Medication List. DISCHARGE INSTRUCTIONS: Follow up in a week. I have been assigned to dictate discharge summary on this account, and I was not involved in the patient's management. Obdulia Lebron NP Jul 10, 2018 12:40
== END 2018-07-09 17:15 | disposition home health service (06) | DRG 469 ==
LOC: EDBD 12:25 → EMR 13:35 → 3E 15:23 → EDBEDREQ 19:51
PROC: 0SRR0JA Replacement of Right Hip Joint, Femoral Surface with Synthetic Substitute, Uncemented, Open Approach (ICD-10-PCS; principal; 2018-07-04 16:00)
DX: S72.011A Unspecified intracapsular fracture of right femur, initial encounter for closed fracture (principal); E43 Unspecified severe protein-calorie malnutrition; J98.11 Atelectasis; W18.2XXA Fall in (into) shower or empty bathtub, initial encounter; Y92.002 Bathroom of unspecified non-institutional (private) residence as the place of occurrence of the external cause; R50.82 Postprocedural fever; G89.18 Other acute postprocedural pain; E86.1 Hypovolemia; Z72.0 Tobacco use; Z68.24 Body mass index [BMI] 24.0-24.9, adult; D64.9 Anemia, unspecified
CPT/HCPCS: 36415; 71045; 71046; 72170; 80048; 80053; 81003; 85025; 86850; 86900; 86901; 87040; 87086; 93005; 94003; 94150; 94640; 94664; 96360; 96361; 99285; J3490; J7620